=== PATIENT | male | born 1950 | race Caucasian/White ===

== ENCOUNTER → 2017-12-24 | Outpatient (CLI) | payer MEDICARE, BC ==
[~2017-12-24] MED LIST: FLEC150T PO; LOSA100T6 PO; METO-282 PO; RIVA20TA PO; SIMV20TA3 PO
== END ==
LOC: STAR 13:09
PROVIDERS: ATTEND Internal Medicine Cardiovascular Disease
DX: Z02.9 Encounter for administrative examinations, unspecified (principal)

== ENCOUNTER 2017-12-28 06:45 | Observation (INO) | payer MEDICARE, BC ==
[2017-12-24 14:26] VITALS: BP 151/71
[~2017-12-28] VITALS: Ht 185.4 cm; Wt 90.2 kg
[2017-12-28] MEDS ORDERED: SODIUM CHLORIDE 0.9% 1,000 ML IV SCH ×2 (07:07→07:30)
[2017-12-28] MEDS ORDERED: MIDAZOLAM 1 MG/ML, 2ML ONE (07:50)
[2017-12-28] MEDS ORDERED: FENTANYL PF 250 MCG/5ML ONE (07:51)
[2017-12-28] MEDS ORDERED: EPHEDRINE 50 MG/ML, 1ML ONE (09:01)
[2017-12-28] MEDS ORDERED: DEXAMETHASONE 4 MG/ML, 1ML ONE (09:01)
[2017-12-28] MEDS ORDERED: CEFAZOLIN 1,000 MG ONE (09:01)
[2017-12-28] MEDS ORDERED: SUCCINYLCHOLINE 20 MG/ML, 10ML ONE (09:01)
[2017-12-28] MEDS ORDERED: ROCURONIUM 10MG/ML,5ML ONE (09:01)
[2017-12-28] MEDS ORDERED: ONDANSETRON 2MG/ML, 2ML ONE (09:01)
[2017-12-28] MEDS ORDERED: HEPARIN 1,000 UNITS/ML, 10ML ONE (09:48)
[2017-12-28] MEDS ORDERED: RIVAROXABAN 20 MG TABLET ONE (11:57)
[2017-12-28] MEDS ORDERED: ZOLPIDEM 5MG TABLET PO PRN (12:00)
[2017-12-28] MEDS ORDERED: ACETAMINOPHEN 325 MG TABLET PO PRN ×2 (12:00→12:30)
[2017-12-28] MEDS ORDERED: ALBUTEROL SULFATE 2.5 MG/3 ML NPPB PRN (12:30)
[2017-12-28] MEDS ORDERED: MEPERIDINE/PF 25MG/0.5ML IVPush PRN (12:30)
[2017-12-28] MEDS ORDERED: LABETALOL 5MG/ML, 20ML IV PRN (12:30)
[2017-12-28] MEDS ORDERED: PROMETHAZINE 25 MG/ML, 1ML IV PRN (12:30)
[2017-12-28] MEDS ORDERED: ONDANSETRON ODT 8 MG PO PRN (12:30)
[2017-12-28] MEDS ORDERED: PROMETHAZINE 12.5 MG SUPP PR PRN (12:30)
[2017-12-28] MEDS ORDERED: MORPHINE SULFATE 4 MG/ML, 1ML IVPush PRN (12:30)
[2017-12-28] MEDS ORDERED: FENTANYL PF 100 MCG/2ML IV PRN (12:30)
[2017-12-28] MEDS ORDERED: OXYcodone 5 MG/5 ML ORAL.SOL UDC PO PRN (12:30)
[2017-12-28] MEDS ORDERED: hydrALAzine 20 MG/ML, 1ML IV PRN (12:30)
[2017-12-28] MEDS ORDERED: MIDAZOLAM 1 MG/ML, 2ML IV PRN (12:30)
[2017-12-28] MEDS ORDERED: RIVAROXABAN 20 MG TABLET PO SCH (17:00)
[2017-12-28 20:00] VITALS: BP 114/72
[2017-12-28] MEDS: FLECAINIDE 100MG TABLET PO SCH (20:07)
[2017-12-28] MEDS ORDERED: SIMVASTATIN 20 MG TABLET PO SCH (21:00)
[2017-12-28] MEDS ORDERED: TEMPLATE NON-FORMULARY MED. (Rivaroxaban** (Xarelto**) 20 MG) PO SCH (21:00)
[2017-12-29 01:59] VITALS: BP 114/64
[2017-12-29 07:55] VITALS: BP 143/80
[2017-12-29] MEDS ORDERED: METOPROLOL SUCCINATE 25 MG TAB.ER.24H PO SCH (09:00)
[2017-12-29] MEDS ORDERED: LOSARTAN 50MG TABLET PO SCH (09:00)
[2017-12-29] MEDS: FLECAINIDE 100MG TABLET PO SCH (09:11)
[2017-12-29 13:10] VITALS: BP 125/71
== END 2017-12-29 17:00 | disposition home or self-care (01) ==
LOC: CACL 06:45 → ORIP 11:50 → 5SO 16:19 → DCLOUNGE 12-29 16:52
PROVIDERS: ADMIT Internal Medicine Cardiovascular Disease; ATTEND Internal Medicine Cardiovascular Disease
DX: I48.91 Unspecified atrial fibrillation (principal); I48.92 Unspecified atrial flutter; I10 Essential (primary) hypertension; E78.5 Hyperlipidemia, unspecified
CPT/HCPCS: 85347; 93308; 93312; 93321; 93325; 93613; 93656; 93662; C1730; C1732; C1759; C1766; C1893; C1894; G0378; J0330; J0690; J1100; J1644; J2250; J2405; J3010

== ENCOUNTER → 2019-08-10 | Outpatient (CLI) | payer MEDICARE, BC ==
[~2019-08-10] MED LIST changes: +LOSA100T14 PO; -LOSA100T6 PO; +SIMV20TA19 PO; -SIMV20TA3 PO
[2019-08-10 09:53] LABS: ALANINE AMINOTRANSFERASE 31 U/L (12-78); ALBUMIN 3.6 g/dL (3.4-5.0); ALKALINE PHOSPHATASE 68 U/L (45-117); ANION GAP 6 mmol/L (5-15); CALCIUM 8.6 mg/dL (8.5-10.1); CHLORIDE 107 mmol/L (98-107); CREATININE 1.41 mg/dL (0.7-1.3)
== END | disposition home or self-care (01) ==
LOC: LAB 09:03
PROVIDERS: ATTEND Internal Medicine Cardiovascular Disease
DX: I10 Essential (primary) hypertension (principal); I48.92 Unspecified atrial flutter
CPT/HCPCS: 36415; 80053